=== PATIENT | female | born 1965 | race Caucasian/White ===

== ENCOUNTER → 2017-08-19 | Outpatient (CLI) | payer BC ==
[~2017-08-19] MED LIST: ATENOLOL50 MG PO; HYDROCHLOROTHIA25 MG PO
--- NOTE | 2017-08-19 11:18 | Diagnostic Imaging Report ---
PROCEDURE:ABDOMINAL ULTRASOUND COMPARISON:Patients [facility], US, US ABDOMEN COMPLETE, 03/24/2012, 11:08. Patients [facility], CT, CT ABDOMEN/PELVIS W, 12/05/2014, 11:35. INDICATIONS:Essential Hypertension Technique: FINDINGS: Imaged portions of the inferior vena cava and abdominal aorta are of normal caliber and contour. Normal pancreatic head and body. Distal tail obscured by bowel gas. Right liver span 12.6 cm. Normal liver echogenicity with a smooth margin. Portal vein diameter 7 mm; normal flow direction. Normal gallbladder. Wall thickness 3 mm. Common bile duct diameter 2 mm. Right kidney: 9.5 x 4.8 x 4.6 cm. Left kidney: 10.1 x 6.2 x 5.3 cm. The left kidney contains a 1.3 x 1.2 x 1.4 cm anechoic simple cyst. Both kidneys are otherwise normal. Splenic length 9 cm. CONCLUSION: Unremarkable abdominal ultrasound.. Dictated by: Arash Barahona M.D. on 08/19/2017 at 11:26 Electronically approved by: Arash Barahona M.D. on 08/19/2017 at 11:26
== END ==
LOC: US 10:26
PROVIDERS: ATTEND Family Medicine
DX: I10 Essential (primary) hypertension (principal)
CPT/HCPCS: 76700

== ENCOUNTER → 2017-08-27 | Outpatient (CLI) | payer BC ==
[~2017-08-27] MED LIST changes: +SINCALIDE 3 MCG/VIAL INJ ONE
--- NOTE | 2017-08-27 14:32 | Diagnostic Imaging Report ---
Hepatobiliary Scan with Gallbladder Ejection Fraction Clinical information: 52 F with chronic abdomina pain x 1 year Report: Following intravenous administration of 6.4 millicuries of Tc-99m mebrofenin, dynamic images of the abdomen in the anterior projection were obtained through 30 minutes. Sincalide (CCK analog) 1.5 micrograms was administered intravenously over 30 minutes with additional imaging for determination of gallbladder ejection fraction. Perfusion to the liver is normal. Extraction of tracer from the blood pool by the liver parenchyma is normal. Tracer is seen promptly within the biliary tract. The gallbladder begins to fill by 10 minutes post-injection of tracer and fills adequately. Tracer is seen in the small bowel by 15 minutes. The gallbladder ejection fraction with administration of sincalide is 81% (normal greater than 40%). Impression: 1. Filling of the gallbladder excludes the diagnosis of acute cystic duct obstruction/acute cholecystitis. 2. Normal gallbladder ejection fraction of 81% does not support the clinical diagnosis of chronic cholecystitis/gallbladder dyskinesia. Signed by: Dr. Rupa Sanches M.D. on 08/27/2017 2:28 PM
== END ==
LOC: NM 08:22
PROVIDERS: ATTEND Family Medicine
DX: R10.9 Unspecified abdominal pain (principal)
CPT/HCPCS: 78227; A9537; J2805

== ENCOUNTER → 2018-03-19 | Outpatient (CLI) | payer BC ==
[~2018-03-19] MED LIST changes: -SINCALIDE 3 MCG/VIAL INJ ONE
--- NOTE | 2018-03-19 16:02 | Diagnostic Imaging Report ---
Exam: Brain MRI without IV contrast History: Syncope Comparison studies: None Technique: Sagittal and axial T2 FS, axial DWI, axial T2*GRE, axial T1 FLAIR and axial coronal T2 FLAIR. Intravenous contrast: None Findings: Scalp: Normal in signal. No masses. Bone marrow: Normal in signal intensity. Brain sulci: Appropriate for age. Ventricles: Normal in size. No hydrocephalus. Extra axial spaces: No mass, no fluid collection. Parenchyma: No mass, hemorrhage or acute ischemia. A few scattered small T2 FLAIR hyperintense foci in the supratentorial white matter are nonspecific but most compatible with chronic microvascular ischemic changes. Suprasellar region: No abnormalities. Craniocervical junction: Patent foramen magnum. No Chiari malformation. Vessels: Normal flow-voids in the arteries and sinuses. IMPRESSION: 1. Mild supratentorial chronic microvascular ischemic change. 2. No other intracranial abnormalities. Signed by: Dr. Phoenix Bazzi M.D. on 03/19/2018 3:58 PM
== END ==
LOC: MRI 13:35
PROVIDERS: ATTEND Family Medicine
DX: R55 Syncope and collapse (principal)
CPT/HCPCS: 70551

== ENCOUNTER 2018-11-15 22:19 | Emergency (ER) | payer BC ==
[~2018-11-15] VITALS: Ht 157.5 cm; Wt 65.8 kg
--- OUTSIDE RECORDS SUMMARY | 2018-11-15 22:22 | XMS REPORT ---
Author Author [facility] Address Unknown Phone Unavailable Care Team Providers Care Advertising Teacher Name Role Phone HAMMAD PRINCE Unavailable Unavailable Problems This patient has no known problems. Allergies, Adverse Reactions, Alerts This patient has no known allergies or adverse reactions. Medications This patient has no known medications. Results Test Description Test Time Test Comments Text Results Atomic Results Result Comments MRI BRAIN WO 2018-03-19 15:54:00 [place] [address] Patient Name: BECCA LUIS MR #: [id number] : 1965 Age/Sex: 52/F Req #: [id number] Adm Physician: Ordered by: HAMMAD PRINCE DO Report #: [id number] Location: MRI Room/Bed: Procedure: [id number] MRI/MRI BRAIN WO Exam Date: Exam Time: REPORT STATUS: Signed Exam: Brain MRI without IV contrast History: Syncope Comparison studies: None Technique: Sagittal and axial T2 FS, axial DWI, axial T2*GRE, axial T1 FLAIR and axial coronal T2 FLAIR. Intravenous contrast: None Findings: Scalp: Normal in signal. No masses. Bone marrow: Normal in signal intensity. Brain sulci: Appropriate for age. Ventricles: Normal in size. No hydrocephalus. Extra axial spaces: No mass, no fluid collection. Parenchyma: No mass, hemorrhage or acute ischemia. A few scattered small T2 FLAIR hyperintense foci in the supratentorial white matter are nonspecific but most compatible with chronic microvascular ischemic changes. Suprasellar region: No abnormalities. Craniocervical junction: Patent foramen magnum. No Chiari malformation. Vessels: Normal flow-voids in the arteries and sinuses. IMPRESSION: 1. Mild supratentorial chronic microvascular ischemic change. 2. No other intracranial abnormalities. Signed by: Dr. Selvin Bazzi M.D. on 03/19/2018 3:58 PM Dictated By: SELVIN BAZZI MD 57 Transcribed By: PATIENCE on 03/19/181557 COPY TO: HAMMAD PRINCE DO HEPTOBILIARY W PHARM [place] [address] Patient Name: BECCA LUIS MR #: [id number] : 1965 Age/Sex: 52/F Req #: [id number] Adm Physician: Ordered by: HAMMAD PRINCE DO Report #: [id number] Location: PR Room/Bed: Procedure: [id number] NM/HEPTOBILIARY W PHARM Exam Date: 08/27/17 Exam Time: 0900 REPORT STATUS: Signed Hepatobiliary Scan with Gallbladder Ejection Fraction Clinical information: 52 F with chronic abdomina pain x 1 year Report: Following intravenous administration of 6.4 millicuries of Tc-99m mebrofenin, dynamic images of the abdomen in the anterior projection were obtained through 30 minutes. Sincalide (CCK analog) 1.5 micrograms was administered intravenously over 30 minutes with additional imaging for determination of gallbladder ejection fraction. Perfusion to the liver is normal. Extraction of tracer from the blood pool by the liver parenchyma is normal. Tracer is seen promptly within the biliary tract. The gallbladder begins to fill by 10 minutes post-injection of tracer and fills adequately. Tracer is seen in the small bowel by 15 minutes. The gallbladder ejection fraction with administration of sincalide is 81% (normal greater than 40%). Impression: 1. Filling of the gallbladder excludes the diagnosis of acute cystic duct obstruction/acute cholecystitis. 2. Normal gallbladder ejection fraction of 81% does not support the clinical diagnosis of chronic cholecystitis/gallbladder dyskinesia. Signed by: Dr. Blayne Sanches M.D. on 08/27/2017 2:28 PM Dictated By: BLAYNE SANCEHS MD 27 Transcribed By: PATIENCE on 08/27/17 142 COPY TO: HAMMAD PRINCE DO US ABDOMEN COMPLETE [place] [address] Patient Name: BECCA LUIS MR #: [id number] : 1965 Age/Sex: 52/F Req #: [id number] Adm Physician: Ordered by: HAMMAD PRINCE DO Report #: [id number] Location: US Room/Bed: Procedure: [id number] US/US ABDOMEN COMPLETE Exam Date: Exam Time: REPORT STATUS: Signed PROCEDURE: ABDOMINAL ULTRASOUND COMPARISON: [facility], US, US ABDOMEN COMPLETE, 03/24/2012, 11:08. [facility], CT, CT ABDOMEN/PELVIS W, 12/05/2014, 11:35. INDICATIONS: Essential Hypertension Technique: FINDINGS: Imaged portions of the inferior vena cava and abdominal aorta are of normal caliber and contour. Normal pancreatic head and body. Distal tail obscured by bowel gas. Right liver span 12.6 cm. Normal liver echogenicity with a smooth margin. Portal vein diameter 7 mm; normal flow direction. Normal gallbladder. Wall thickness 3 mm. Common bile duct diameter 2 mm. Right kidney: 9.5 x 4.8 x 4.6 cm. Left kidney: 10.1 x 6.2 x 5.3 cm. The left kidney contains a 1.3 x 1.2 x 1.4 cm anechoic simple cyst. Both kidneys are otherwise normal. Splenic length 9 cm. CONCLUSION: Unremarkable abdominal ultrasound.. Dictated by: Salome Hassan M.D. on 08/19/2017 at 11:26 Electronically approved by: Salome Hassan M.D. on 08/19/2017 at 11:26 Dictated By: SALOME HASSAN MD [id number] Transcribed By: LUZ on 08/19/17 1126 COPY TO: HAMMAD PRINCE DO
[2018-11-15] MEDS ORDERED: TETANUS/DIPHTHERIA TOX ADULT 0.5 ML SYR ONE ×2 (22:41→22:54)
[2018-11-15] MEDS ORDERED: TETANUS/DIPHTHERIA TOX ADULT 0.5 ML SYR IM ONE (22:45)
--- NOTE | 2018-11-15 23:37 | Diagnostic Imaging Report ---
Exam: Left Hand Series. History: Hand laceration, and edema Comparison: None. Findings: Exam limited by presence of overlying bandages, which partly obscure the bony structures. 3 views of the left hand. There is normal bone mineralization. Negative for acute, displaced fracture or dislocation. The joint spaces are normal. No abnormal soft tissue calcification or mass. No cystic erosive changes. Mild soft tissue swelling in the dorsal aspect of the hand, with soft tissue linear lucency which may represent the known laceration. Impression: 1. No acute, displaced fracture or dislocation. 2.. Mild soft tissue swelling in the dorsal aspect of the hand, with soft tissuea linear lucency which may represent the known laceration. Signed by: Dr. Kennedy Mccullough M.D. on 11/15/2018 11:32 PM
[2018-11-16] MEDS ORDERED: LIDOCAINE HCL 1% LOCAL INJ 20 ML VIAL INJ STA (00:21)
[2018-11-16] MEDS ORDERED: NEOMYCIN/POLYMYX/BACITR OINT 0.9 GM PKT TOP STA (00:21)
[2018-11-16] MEDS ORDERED: NEOMYCIN/POLYMYX/BACITR OINT 0.9 GM PKT ONE (00:25)
[2018-11-16] MEDS ORDERED: LIDOCAINE HCL 1% LOCAL INJ 20 ML VIAL ONE (00:25)
--- NOTE | 2018-11-16 00:27 | NUR ---
LACERATION TRAY SETUP
[2018-11-16] MEDS ORDERED: AUGMENTIN 875-1 EACH PO (01:24)
== END 2018-11-16 01:30 | disposition home or self-care (01) ==
LOC: ER 22:28
DX: S61.412A Laceration without foreign body of left hand, initial encounter (principal); W26.8XXA Contact with other sharp object(s), not elsewhere classified, initial encounter; I10 Essential (primary) hypertension
CPT/HCPCS: 12002; 73130; 90471; 90714; 99283; J2001

== ENCOUNTER → 2021-06-18 | Outpatient (CLI) | payer BC ==
[~2021-06-18] MED LIST changes: +AUGMENTIN 875-1 EACH PO
== END ==
LOC: MRI 08:53
PROVIDERS: ATTEND Family Medicine
DX: R41.3 Other amnesia (principal); G44.52 New daily persistent headache (NDPH)
CPT/HCPCS: 70551